=== PATIENT | male | born 1995 | race Two or more races ===

== ENCOUNTER 2021-10-08 16:48 | Emergency (ER) | payer OTHER ==
[~2021-10-08] VITALS: Ht 172.7 cm; Wt 71.0 kg
--- NOTE | 2021-10-08 17:36 | RAD ---
Three-view right ankle, three-view right foot and two-view right tibia-fibula dated 10/08/2021. COMPARISON: None. INDICATION: Pain after fall. FINDINGS: 2 views of the right tibia fibula show normal bony alignment. No displaced fracture. No periostitis o r bone destruction. 3 views the right ankle show normal bony alignment. No displaced fracture. There are growth arrest li zen at the distal tibia and fibular diametaphysis. The talar dome is intact. There is mild soft tissu e swelling. 3 views the right foot show normal bony alignment. There are small bone fragments along the lateral m argin of the calcaneus. No additional fractures are seen. IMPRESSION: 1. There are small bone fragments along the lateral margin of the calcaneus seen on only one view, moser spicious for small avulsion fractures, possibly at the lateral process or peroneal tubercle. CT may b guevara evaluate. 2. Diffuse soft tissue swelling. 3. No additional acute bony abnormality. Electronically signed by: Ulisses Carrizales MD (10/08/2021 5:33 PM) MARIA D
--- NOTE | 2021-10-08 18:24 | PHYS DOC ---
Past Medical History Past Surgical History: No Surgical History Smoking Status: Unknown if ever smoked Alcohol Use: None General Adult EDM: Chief Complaint: MECHANICAL FALL HPI: HPI: Patient is a 26 year old male who presents with left ankle and foot pain. Patient states that the day before yesterday, he fell while [place]az[place]. He is unsure how exactly he fell, but states that he stumbled somehow. The fall was from greater than 10 feet. At rest, patient states his pain is 5/10 and nonradiating. When he attempts to walk, the pain increases to 10/10 and is unbearable. Patient was evaluated at urgent care this morning, who wrapped his ankle in an Curry bandage and instructed he come to the ER for further evaluation. They gave him crutches. He denies any head trauma, neck trauma, loss of consciousness, bowel or bladder incontinence, paresthesias or focal weakness. Review of Systems: Review of Systems: Constitutional: Denies fever, chills or generalized weakness Eyes: Denies change in visual acuity, visual field deficits or discharge HENT: Denies ear pain, nasal congestion or sore throat Respiratory: Denies cough or shortness of breath Cardiovascular: Denies chest pain, palpitations or edema GI: Denies abdominal pain, nausea, vomiting, bloody stools or diarrhea : Denies dysuria or hematuria Musculoskeletal: See HPI Integument: See HPI Neurologic: See HPI Heart Score: C/O Chest Pain: No Allergies: Allergies: Allergies Coded Allergies Type Severity Reaction Last Updated Verified No Known Drug Allergies 10/08/21 No Physical Exam: PE: Constitutional: Well developed, well nourished, no acute distress, non-toxic appearance. HENT: Normocephalic, atraumatic, bilateral external ears normal, nose normal. Eyes: PERRL, EOMI, conjunctiva normal, no discharge. Neck: Normal range of motion, no tenderness, supple, no stridor. Skin: Warm, dry, no erythema, no rash, no abrasions, no lacerations. Back: No stepoff, no tenderness, no CVA tenderness. Extremities: Right ankle tender to palpation and swollen, no cyanosis, no clubbing, passive ROM intact, cap refill less than 2-second. Neurologic: Alert and oriented x4, normal motor function, normal sensory function, no focal deficits noted. Current Patient Data: Vital Signs: Vital Signs Date Time Temp Pulse Resp B/P (MAP) Pulse Ox O2 Delivery O2 Flow Rate FiO2 10/08/21 18:31 64 20 137/75 (95) 99 Room Air 10/08/21 16:50 98.2 98 20 159/84 (109) 100 Room Air 98.2 Radiology/Procedures: Radiology/Procedures: PROCEDURE: TIBIA FIBULA RIGHT Three-view right ankle, three-view right foot and two-view right tibia-fibula dated 10/08/2021. COMPARISON: None. INDICATION: Pain after fall. FINDINGS: 2 views of the right tibia fibula show normal bony alignment. No displaced fracture. No periostitis or bone destruction. 3 views the right ankle show normal bony alignment. No displaced fracture. There are growth arrest lines at the distal tibia and fibular diametaphysis. The talar dome is intact. There is mild soft tissue swelling. 3 views the right foot show normal bony alignment. There are small bone fragments along the lateral margin of the calcaneus. No additional fractures are seen. IMPRESSION: 1. There are small bone fragments along the lateral margin of the calcaneus seen on only one view, suspicious for small avulsion fractures, possibly at the lateral process or peroneal tubercle. CT may better evaluate. 2. Diffuse soft tissue swelling. 3. No additional acute bony abnormality. Electronically signed by: Ulisses Carrizales MD (10/08/2021 5:33 PM) [facility] Course & Med Decision Making: Course & Med Decision Making Pertinent Labs and Imaging studies reviewed. (See chart for details) Patient is a 26-year-old male who fell from a height greater than 10 feet day before yesterday. He denies neurological symptoms and trauma. Risk and benefit of CT images of the head and neck were discussed, and patient defers at this time. Plain films are obtained of the right tib-fib, ankle, foot. Patient also states that his pain is well controlled at this time, and declines analgesics. Plain films are inconclusive regarding possible calcaneal fracture. Patient was placed in a posterior splint and instructed to not bear weight on the foot until he is evaluated by orthopedic/podiatry. Follow-up contact information was provided to him. Return precautions were also provided. Patient understands and is agreeable to discharge plan. Patient is Canadian speaking. Interview and exam were conducted in Canadian with good understanding and fluid communication. Dragon Disclaimer: Dragon Disclaimer: This electronic medical record was generated, in whole or in part, using a voice recognition dictation system. Splinting Patient is family member at bedside are informed of findings. Posterior ankle splint applied by [employer]. The splint is checked by myself, with appropriate stabilization of the injury. Distal capillary refill less than 2 seconds and distal neurologic function intact. Departure Departure Impression: Primary Impression: Injury resulting from fall from height Additional Impression: Injury of right ankle and foot Qualified Codes: S99.911A - Unspecified injury of right ankle, initial encounter; S99.921A - Unspecified injury of right foot, initial encounter Disposition: HOME / SELF CARE / HOMELESS Condition: IMPROVED Referrals: CARLOS ENRIQUE MAYNARD DPJohn Patient Instructions: Crutch Use, [id number], Splint Care, [id number] Additional Instructions: INSTRUCCIONES GENERALES DE SHAD DEL DEPARTAMENTO DE EMERGENCIA Kayli por venir savanna al Departamento de Emergencias (ED) de [facility] y confiarnos knight atencin. Confiamos en que haya tenido mahad experiencia positiva en nuestro Departamento de Emergencias. Si desea hablar con la gerencia del departamento, puede llamar al director al . AFIA INSTRUCCIONES DE SEGUIMIENTO SON LAS SIGUIENTES: 1. Shade un seguimiento con knight mdico de atencin primaria. Si no tiene un mdico de cabecera, solicite mahad lista de recursos de mdicos o clnicas que puedan ayudarlo con la atencin de seguimiento. 2. El proveedor de emergencia claire interpretado afia estudios de imgenes, si se ordenaron. El especialista en imgenes de radiologa tambin los raegan. Si hay un cambio en los hallazgos, se le notificar en 48 horas cuando sea posible. 3. Si se claire realizado mahad prueba de laboratorio o un cultivo, se revisarn afia resultados y se le notificar si necesita un cambio en el tratamiento. 4. Siga las instrucciones verbalizadas y consulte las copias impresas si es necesario. INSTRUCCIONES E INFORMACIN ADICIONALES: 1. Knight atencin hoy claire sido supervisada por un mdico especialmente capacitado en atencin de emergencia. Muchos problemas requieren ms de mahad evaluacin para un diagnstico y tratamiento completos. Le recomendamos que programe knight veronica de seguimiento segn lo recomendado para garantizar el tratamiento completo de knight enfermedad o lesin. Si no puede obtener atencin de seguimiento y contina teniendo un problema, o si knight condicin empeora, le recomendamos que regrese al servicio de urgencias. 2. No podemos determinar de manera coombs knight condicin por telfono ni podemos liyah consejos mdicos slidos por telfono. Por estas razones de seguridad, si llama para pedir consejo mdico, le pediremos que vaya al servicio de urgencias para mahad evaluacin adicional. 3. Si tiene alguna pregunta sobre estas instrucciones de shad, llame al ED al . INFORMACIN DE SEGURIDAD: En inters de la seguridad, el bienestar y la prevencin de lesiones; le recomendamos que use knight cinturn de seguridad, si fuma; bastante fumador, y alentamos a la srinivasan a usar un christie protector para andar en bicicleta y otros eventos deportivos que presenten un mayor riesgo de lesiones en la sg. SI AFIA SNTOMAS EMPEORAN O SE DESARROLLAN NUEVOS SNTOMAS, O SI TIENE PREOCUPACIONES SOBRE KNIGHT CONDICIN; O SI KNIGHT CONDICIN EMPEORA MIENTRAS ESPERA KNIGHT VERONICA DE SEGUIMIENTO; PNGASE EN CONTACTO CON KNIGHT MDICO DE ATENCIN PRIMARIA, EL MDICO CUYO NOMBRE Y NMERO LE DIERON, O REGRESE AL ED INMEDIATAMENTE. RAJIV TEMPLETON Oct 08, 2021 18:24
[2021-10-08 18:31] VITALS: BP 137/75
== END 2021-10-08 18:37 | disposition home or self-care (01) ==
LOC: ER 16:48
DX: S99.911A Unspecified injury of right ankle, initial encounter (principal); S99.921A Unspecified injury of right foot, initial encounter; W13.2XXA Fall from, out of or through roof, initial encounter; Y93.89 Activity, other specified; Y92.89 Other specified places as the place of occurrence of the external cause; Y99.8 Other external cause status
CPT/HCPCS: 29515; 73590; 73610; 73630; 99284